=== PATIENT | female | born 2000 | race American Indian/Alaskan Native ===

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

== ENCOUNTER 2021-04-28 22:46 | Inpatient (IN) | payer MEDICAID ==
[2021-04-28] MEDS ORDERED: Oxytocin/Normal Saline 30 UNIT/500 ML BAG IV SCH (23:45)
--- NOTE | 2021-04-28 23:49 | PCM.LDHP ---
L&D History of Present Illness - General Date of Service: 04/28/21 Admit Problem/Dx: Admission Diagnosis/Problem Admission Diagnosis/Problem Source of Information: Patient History Limitations: Reports: No Limitations - History of Present Illness Introduction:: 20-year-old at 39w1d presents to L&D with increased contractions. Patient states that she started feeling uncomfortable yesterday. Over the past 5-6 hours, she has noted that her contractions have become more frequent and more intense. Reports feeling them every 1-2 minutes. She is breathing through them. No vaginal bleeding or leaking of fluid. Baby has been active. No headaches or vision changes. - Related Data Allergies/Adverse Reactions: Allergies Allergy/AdvReac Type Severity Reaction Status Date / Time No Known Allergies Allergy Verified 04/17/21 20:40 Home Medications: Home Meds Metoclopramide HCl 10 mg PO . EVERY 8 HOURS N 09/16/20 [History] #103/Iron Fumarate/Fa [ ] 1 tab PO DAILY 10/11/20 [History] Past Medical History - Past Health History Medical/Surgical History: Denies Medical/Surgical History HEENT History: Reports: Impaired Vision Other HEENT History: wears glasses Cardiovascular History: Reports: None Respiratory History: Reports: Pneumonia, Recurrent Other Respiratory History: in 2nd grade was in [place] with chest tubes from pneumonia. 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 Musculoskeletal History: Reports: None Neurological History: Reports: None Psychiatric History: Reports: Anxiety, Depression, Panic Attack Endocrine/Metabolic History: Reports: None Hematologic History: Reports: Anemia, Other (See Below) Other Hematologic History: patient reports that she has not been taking her iron at this time Immunologic History: Reports: None Oncologic (Cancer) History: Reports: None Dermatologic History: Reports: None - Infectious Disease History Infectious Disease History: Reports: None - Past Surgical History Head Surgeries/Procedures: Reports: None HEENT Surgical History: Reports: None, Other (See Below) Other HEENT Surgeries/Procedures: dental surgery Respiratory Surgical History: Reports: Thoracentesis Social & Family History - Family History Family Medical History: No Pertinent Family History - Caffeine Use Caffeine Use: Reports: Coffee, Soda H&P Review of Systems - Review of Systems: Review Of Systems: See Below General: Reports: No Symptoms HEENT: Reports: No Symptoms Pulmonary: Reports: No Symptoms Cardiovascular: Reports: No Symptoms Gastrointestinal: Reports: No Symptoms Musculoskeletal: Reports: No Symptoms Skin: Reports: No Symptoms Psychiatric: Reports: No Symptoms Neurological: Reports: No Symptoms L&D Exam - Exam Exam: See Below - OB Specific Fundal Height In cm: 39 Contraction Duration (sec): 60 Contraction Frequency (min): 2-3 Contraction Intensity: Moderate Movement: Active Heart Tones: Present Heart Tones per Min: 145 Heart Rate (FHR) Variability: Moderate (6-25 bpm) Presentation: Vertex - Mcdaniel Score Mcdaniel Score Cervix Position: Midposition Mcdaniel Score Consistency: Soft Mcdaniel Score Effacement: 51-70% Mcdaniel Score Dilation: 3-4 cm Mcdaniel Score 's Station: -2 Mcdaniel Score Total: 8 - Exam General: Alert, Oriented Lungs: Clear to Auscultation, Normal Respiratory Effort Cardiovascular: Regular Rate Back Exam: Normal Inspection Extremities: Normal Inspection, Non-Tender, Pedal Edema (Trace bilaterally) Skin: Warm, Dry, Intact Psychiatric: Alert - Problem List (1) care in third trimester SNOMED Code(s): 639474609, 44583232, 52275890, 140185020, 501753250 ICD Code: Z34.93 - ENCNTR FOR SUPRVSN OF NORMAL PREG, UNSP, THIRD TRIMESTER Status: Acute Current Visit: Yes (2) Impaired glucose in , antepartum SNOMED Code(s): 044253369, 647414602 ICD Code: O99.810 - ABNORMAL GLUCOSE COMPLICATING Status: Acute Current Visit: Yes (3) GBS (group B Streptococcus carrier), +RV culture, currently SNOMED Code(s): 6817467391626, 444921196, 7016856536875 ICD Code: O99.820 - STREPTOCOCCUS B CARRIER STATE COMPLICATING Status: Acute Current Visit: Yes (4) Anemia affecting in third trimester SNOMED Code(s): 69504863, 00011131 ICD Code: O99.013 - ANEMIA COMPLICATING , THIRD TRIMESTER Status: Acute Current Visit: Yes (5) History of miscarriage, currently SNOMED Code(s): 115315599, 741907703 ICD Code: O09.299 - SUPRVSN OF PREG W POOR REPRODCTV OR OBSTET HISTORY, UNSP TRI Status: Acute Current Visit: Yes Problem List Initiated/Reviewed/Updated: Yes Assessment/Plan Comment:: 20-year-old at 39w1d admitted to L&D for active labor at term 1. Initiate routine intrapartum orders 2. Patient plans for intrathecal 3. PCN for GBS positive status 4. Expectant management. Anticipate Dr. Yajaira Paige MD
[2021-04-28] MEDS ORDERED: Misoprostol 400 MCG (4 X 100 MCG TAB) RECTAL PRN (23:50)
[2021-04-28] MEDS ORDERED: Acetaminophen 325 MG Tab PO PRN (23:50)
[2021-04-28] MEDS ORDERED: Tranexamic Acid 1,000 MG in Sodium Chloride 0.9% 100 ML IV PRN (23:50)
[2021-04-28] MEDS ORDERED: Penicillin G Potassium 5 MILLUNITS in Sodium Chloride 0.9% 100 ML IV ONE (23:50)
[2021-04-28] MEDS ORDERED: Lidocaine 1% 30 ML SDV INJECT PRN (23:50)
[2021-04-28] MEDS ORDERED: fentaNYL 100 MCG/2 ML SDV IVPUSH PRN (23:50)
[2021-04-28] MEDS ORDERED: Ondansetron 4 MG/2 ML SDV IVPUSH PRN (23:50)
[2021-04-28] MEDS ORDERED: Butorphanol 2 MG/ML SDV IVPUSH PRN ×2 (23:50)
[2021-04-28] MEDS ORDERED: Lactated Ringers 1,000 ML IV ONE (23:50)
[2021-04-28] MEDS ORDERED: Sodium Chloride 0.9% 10 ML Syringe FLUSH PRN (23:50)
[2021-04-28] MEDS ORDERED: Carboprost Tromethamine 250 MCG/1 ML Amp IM PRN (23:50)
[2021-04-28] MEDS ORDERED: Methylergonovine 0.2 MG/1 ML Amp IM PRN (23:50)
[2021-04-28] MEDS ORDERED: Nalbuphine 10 MG/1 ML Vial IM PRN (23:55)
[2021-04-28] MEDS ORDERED: Nalbuphine 10 MG/1 ML Vial IV PRN (23:55)
[2021-04-29] MEDS ORDERED: hydrOXYzine HCl 25 MG Tab PO ONE (00:19)
[2021-04-29] MEDS ORDERED: Penicillin G Potassium 3 MILLUNITS in Sodium Chloride 0.9% 100 ML IV SCH (02:00)
[2021-04-29] MEDS: Penicillin G Potassium 3 MILLUNITS in Sodium Chloride 0.9% 100 ML IV SCH ×2 (05:06→09:45)
[2021-04-29] MEDS: Lactated Ringers 1,000 ML IV SCH ×2 (07:30→08:50)
[2021-04-29] MEDS ORDERED: Sodium Chloride 0.9% 20 ML SDV ONE (08:10)
[2021-04-29] MEDS ORDERED: fentaNYL 100 MCG/2 ML SDV ITHECAL ONE (08:10)
[2021-04-29] MEDS ORDERED: EPINEPHrine 1 MG/ML SDV ONE ×2 (08:10→08:17)
[2021-04-29] MEDS ORDERED: Sodium Bicarbonate 4.2% 2.5 MEQ/5 ML SDV ONE (08:17)
[2021-04-29] MEDS ORDERED: fentaNYL 100 MCG/2 ML SDV ONE (08:17)
--- NOTE | 2021-04-29 08:36 | PCM.SN.2 ---
- Free Text/Narrative Note: Intrathecal. Sitting position, sterile prep and drape. 1% lidocaine w bicarb for skinwheal to L2 L3 interspace. Introducer, 24 ga pencan x 1. 0.1 ml of I:1000 pf epi wash, 20 mcg pf sufenta, 30 mcg pf fentanyl, 0.4 ml pf NS and 6 mg of 0.75% pf Marcaine injected after CSF aspiration. Pt to L lateral position. Procedure time 0810 to 0855 Time Documentation
--- NOTE | 2021-04-29 12:13 | PCM.DEL ---
L & D Note - General Info Date of Service: 04/29/21 Mother's Due Date: 05/04/21 - Delivery Note Labor: Spontaneous, Augmented by ARM, Augmented by Oxytocin Delivery Outcome: Livebirth Delivery Method: Spontaneous Vaginal Delivery-Single Presentation: Vertex Nuchal Cord: None Anesthesia Type: Intrathecal, Nitrous Oxide Amniotic Fluid Description: Meconium Stained Episiotomy Type: None Laceration: 1st Degree, Perineal (Repaired with single figure-of-8 stitch for hemostatsis) Suture type: Vicryl Suture size: 3-0 Placenta: Intact, Spontaneous Cord: 3 Vessels Estimated Blood Loss: 250 Resuscitation Needed: Yes [place]: Suctioned, Bulb Syringe, Stimulated, Warmed Score 1 min: 8 Score 5 min: 9 Delivery Comments (Free Text/Narrative):: 20-year-old at 39w1d presented to L&D in early labor around 2300. Patient required pitocin for augmentation, and AROM was performed at 0900. Patient received an intrathecal for pain control. Patient progressed to complete dilation around 1130. Patient pushed with 2 contractions then began vomiting, which was very effective in bringing the head down to the perineum. After about 5 minutes, patient delivered a viable male with Apgars of 8 and 9 at 1 and 5 minutes respectively. [place] was placed on the mother's chest. Cord was clamped x2 and cut. Cord blood was collected. Placenta delivered about 5 minutes later without difficulty and was noted to be intact. Perineum was inspected. A 1st degree perineal laceration was noted. Pressure was held initially; however, this did not result in hemostasis so a single figure-of-8 stitch was placed using 3-0 vicryl suture. Hemostasis was achieved. Uterine tone was noted to be firm, and vaginal bleeding was appropriate. Patient tolerated the procedure well, and there were no immediate complications. Induction Criteria - Augmentation Estimated Pelvis: Reports: Adequate Weight Estimated:: Reports: AGA Reassuring Monitoring Strip: Yes Absence of Tachy Systole: Yes - General Info Date of Service: 04/29/21 - Patient Data Vitals - Most Recent: Last Vital Signs Temp 36.8 C 04/29/21 09:15 Pulse 100 04/29/21 09:00 Resp 12 04/29/21 09:00 BP 123/66 04/29/21 09:00 Pulse Ox 96 04/29/21 09:00 Weight - Most Recent: 89.358 kg I&O - Last 24 Hours: Intake & Output 04/28/21 04/29/21 04/29/21 22:59 06:59 14:59 Intake Total 1100 Balance 1100 Lab Results Last 24 Hours: Laboratory Results - last 24 hr 04/29/21 04/29/21 04/29/21 Range/Units 00:20 00:20 00:20 WBC (5.0-10.0) 10^3/uL RBC (4.2-5.4) 10^6/uL Hgb (12.0-16.0) g/dL Hct (37.0-47.0) % MCV (80-100) fL MCH (27.0-34.0) pg MCHC (33.0-35.0) g/dL Plt Count (150-450) 10^3/uL BUN (7-18) mg/dL Creatinine (0.55-1.02) mg/dL Est Cr Clr Drug Dosing Estimated GFR (MDRD) Uric Acid (2.6-6.0) mg/dL AST (15-37) U/L ALT (14-59) U/L Lactate Dehydrogenase (81-234) U/L Urine Color Yellow (YELLOW) Urine Appearance Cloudy (CLEAR) Urine pH 8.5 (5.0-9.0) Ur Specific [place] 1.020 (1.005-1.030) Urine Protein Trace H (NEGATIVE) Urine Glucose (UA) Negative (NEGATIVE) Urine Ketones Negative (NEGATIVE) Urine Occult Blood Moderate H (NEGATIVE) Urine Nitrite Negative (NEGATIVE) Urine Bilirubin Negative (NEGATIVE) Urine Urobilinogen 0.2 (0.2-1.0) mg/dL Ur Leukocyte Esterase Moderate H (NEGATIVE) Ur Random Creatinine 62.52 (No establ ref range) mg/dL U Random Total Protein 25.3 H (0.0-11.9) mg/dL Protein/Creatinin Ratio 404.7 H (<150.0) mg/g SARS-CoV-2 RNA ([place]) Negative (NEGATIVE) 04/29/21 04/29/21 Range/Units 00:45 00:45 WBC 16.4 H (5.0-10.0) 10^3/uL RBC 4.47 (4.2-5.4) 10^6/uL Hgb 10.4 L (12.0-16.0) g/dL Hct 33.8 L (37.0-47.0) % MCV 75.6 L D (80-100) fL MCH 23.3 L (27.0-34.0) pg MCHC 30.8 L (33.0-35.0) g/dL Plt Count 222 (150-450) 10^3/uL BUN 4 L (7-18) mg/dL Creatinine 0.68 (0.55-1.02) mg/dL Est Cr Clr Drug Dosing TNP Estimated GFR (MDRD) > 60 Uric Acid 5.5 (2.6-6.0) mg/dL AST 14 L (15-37) U/L ALT 17 (14-59) U/L Lactate Dehydrogenase 234 (81-234) U/L Urine Color (YELLOW) Urine Appearance (CLEAR) Urine pH (5.0-9.0) Ur Specific [place] (1.005-1.030) Urine Protein (NEGATIVE) Urine Glucose (UA) (NEGATIVE) Urine Ketones (NEGATIVE) Urine Occult Blood (NEGATIVE) Urine Nitrite (NEGATIVE) Urine Bilirubin (NEGATIVE) Urine Urobilinogen (0.2-1.0) mg/dL Ur Leukocyte Esterase (NEGATIVE) Ur Random Creatinine (No establ ref range) mg/dL U Random Total Protein (0.0-11.9) mg/dL Protein/Creatinin Ratio (<150.0) mg/g SARS-CoV-2 RNA ([place]) (NEGATIVE) Med Orders - Current: Current Medications Acetaminophen (Acetaminophen 325 Mg Tab) 650 mg PO Q4H PRN PRN Reason: Pain (Mild 1-3) and fever Butorphanol Tartrate (Butorphanol 2 Mg/Ml Sdv) 0.5 mg IVPUSH Q3H PRN PRN Reason: Pain Butorphanol Tartrate (Butorphanol 2 Mg/Ml Sdv) 1 mg IVPUSH Q3H PRN PRN Reason: Pain Carboprost Tromethamine (Carboprost Tromethamine 250 Mcg/1 Ml Amp) 250 mcg IM ASDIRECTED PRN PRN Reason: HEMORRHAGE Fentanyl (Fentanyl 100 Mcg/2 Ml Sdv) 100 mcg IVPUSH Q1H PRN PRN Reason: Pain (moderate 4-6) Tranexamic Acid 1,000 mg/ (Sodium Chloride) 110 mls @ 660 mls/hr IV ONETIME PRN PRN Reason: Bleeding Oxytocin/Sodium Chloride (Pitocin In Ns 30 Unit/500 Ml) 30 unit in 500 mls @ 2 mls/hr IV TITRATE JACQUES; Protocol Lactated Ringer's (Ringers, Lactated) 1,000 mls @ 125 mls/hr IV ASDIRECTED JACQUES Last Admin: 04/29/21 08:50 Dose: 125 mls/hr Documented by: Penicillin G Potassium 3 (millunits/ Sodium Chloride) 100 mls @ 200 mls/hr IV Q4H JACQUES Last Admin: 04/29/21 09:45 Dose: 200 mls/hr Documented by: Lidocaine HCl (Lidocaine 1% 30 Ml Sdv) 30 ml INJECT ASDIRECTED PRN PRN Reason: Perineal Repair Methylergonovine Maleate (Methylergonovine 0.2 Mg/1 Ml Amp) 0.2 mg IM ASDIRECTED PRN PRN Reason: Hemorrhage Misoprostol (Misoprostol 400 Mcg (4 X 100 Mcg Tab)) 800 mcg RECTAL ASDIRECTED PRN PRN Reason: Hemorrhage Nalbuphine HCl (Nalbuphine 10 Mg/1 Ml Vial) 20 mg IM Q3H PRN PRN Reason: Pain Last Admin: 04/29/21 01:07 Dose: 20 mg Documented by: Nalbuphine HCl (Nalbuphine 10 Mg/1 Ml Vial) 10 mg IV Q3H PRN PRN Reason: Pain Ondansetron HCl (Ondansetron 4 Mg/2 Ml Sdv) 4 mg IVPUSH Q4H PRN PRN Reason: Nausea/Vomiting Last Admin: 04/29/21 06:17 Dose: 4 mg Documented by: Sodium Chloride (Sodium Chloride 0.9% 10 Ml Syringe) 10 ml FLUSH ASDIRECTED PRN PRN Reason: Keep Vein Open Discontinued Medications Epinephrine HCl (Epinephrine 1 Mg/Ml Sdv) Confirm Administered Dose 1 mg .ROUTE .STK-MED ONE Stop: 04/29/21 08:18 Fentanyl (Fentanyl 100 Mcg/2 Ml Sdv) Confirm Administered Dose 100 mcg .ROUTE .STK-MED ONE Stop: 04/29/21 08:18 Hydroxyzine HCl (Hydroxyzine Hcl 25 Mg Tab) 50 mg PO ONETIME ONE Stop: 04/29/21 00:20 Last Admin: 04/29/21 01:07 Dose: 50 mg Documented by: Penicillin G Potassium 5 (millunits/ Sodium Chloride) 100 mls @ 200 mls/hr IV ONETIME ONE Stop: 04/29/21 00:19 Last Admin: 04/29/21 01:06 Dose: 200 mls/hr Documented by: Penicillin G Potassium 3 (millunits/ Sodium Chloride) 100 mls @ 200 mls/hr IV Q4HR JACQUES Last Admin: 04/29/21 02:26 Dose: Not Given Documented by: Lactated Ringer's (Ringers, Lactated) 1,000 mls @ 999 mls/hr IV BOLUS ONE Stop: 04/29/21 00:50 Last Admin: 04/29/21 09:54 Dose: Not Given Documented by: Sodium Bicarbonate (Sodium Bicarbonate 4.2% 2.5 Meq/5 Ml Sdv) Confirm Administered Dose 2.5 meq .ROUTE .STK-MED ONE Stop: 04/29/21 08:18 Sufentanil Citrate (Sufentanil 50 Mcg/1 Ml Amp) Confirm Administered Dose 50 mcg .ROUTE .STK-MED ONE Stop: 04/29/21 08:18 - Problem List & Annotations (1) care in third trimester SNOMED Code(s): 631383396, 41949929, 82868139, 392142249, 333682941 Code(s): Z34.93 - ENCNTR FOR SUPRVSN OF NORMAL PREG, UNSP, THIRD TRIMESTER Status: Acute (2) Impaired glucose in , antepartum SNOMED Code(s): 184485877, 352652379 Code(s): O99.810 - ABNORMAL GLUCOSE COMPLICATING Status: Acute (3) GBS (group B Streptococcus carrier), +RV culture, currently SNOMED Code(s): 4061962443105, 531162369, 4659419197737 Code(s): O99.820 - STREPTOCOCCUS B CARRIER STATE COMPLICATING Status: Acute (4) Anemia affecting in third trimester SNOMED Code(s): 78814794, 50068134 Code(s): O99.013 - ANEMIA COMPLICATING , THIRD TRIMESTER Status: Acute (5) History of miscarriage, currently SNOMED Code(s): 915439327, 787452682 Code(s): O09.299 - SUPRVSN OF PREG W POOR REPRODCTV OR OBSTET HISTORY, UNSP TRI Status: Acute (6) (normal spontaneous vaginal delivery) SNOMED Code(s): 76262424, 860604199 Code(s): O80 - ENCOUNTER FOR FULL-TERM UNCOMPLICATED DELIVERY Status: Acute (7) Perineal laceration SNOMED Code(s): 833188002 Code(s): TZF8636 - Status: Acute Annotation/Comment:: 1st degree, repaired - Problem List Review Problem List Initiated/Reviewed/Updated: Yes - My Orders Last 24 Hours: My Active Orders 04/28/21 23:45 Lactated Ringers [Ringers, Lactated] 1,000 ml IV ASDIRECTED Oxytocin/Normal Saline [Pitocin in NS 30 UNIT/500 ML] 30 unit in 500 ml IV TITRATE 04/28/21 23:50 Patient Status [ADT] Routine Notify Provider Vital Signs OB [RC] ASDIRECTED Pump Management, Intrathecal [RC] ASDIRECTED Up ad Qing [RC] ASDIRECTED Vital Signs [RC] 08,20 Acetaminophen [TylenoL] 650 mg PO Q4H PRN Butorphanol [Stadol] 0.5 mg IVPUSH Q3H PRN Butorphanol [Stadol] 1 mg IVPUSH Q3H PRN Carboprost Tromethamine [Hemabate DS] 250 mcg IM ASDIRECTED PRN Lidocaine 1% [Xylocaine-MPF 1%] 30 ml INJECT ASDIRECTED PRN Methylergonovine [Methergine] 0.2 mg IM ASDIRECTED PRN Ondansetron [Zofran] 4 mg IVPUSH Q4H PRN Sodium Chloride 0.9% [Saline Flush] 10 ml FLUSH ASDIRECTED PRN Tranexamic Acid [Cyklokapron] 1,000 mg Sodium Chloride 0.9% [Normal Saline] 100 ml IV ONETIME fentaNYL [Sublimaze] 100 mcg IVPUSH Q1H PRN miSOPROStoL [Cytotec] 800 mcg RECTAL ASDIRECTED PRN Saline Lock Insert [OM.PC] Routine Resuscitation Status Routine 04/28/21 23:55 Nalbuphine [Nubain] 10 mg IV Q3H PRN Nalbuphine [Nubain] 20 mg IM Q3H PRN 04/29/21 05:00 Penicillin G Potassium [Pfizerpen] 3 millunits Sodium Chloride 0.9% [Normal Saline] 100 ml IV Q4H 04/29/21 Breakfast Regular Diet [DIET] - Assessment Assessment:: 20-year-old, now , s/p at 39w2d - Plan Plan:: 1. Initiate routine cares 2. Plans to bottle feed 3. Anticipate discharge 05/01/2021 Yajaira Paige MD
[2021-04-29] MEDS ORDERED: Benzocaine/Menthol 20%-0.5% Spray 78 GM Cannister TOP PRN (12:17)
[2021-04-29] MEDS ORDERED: Zolpidem 5 MG Tab PO PRN (12:17)
[2021-04-29] MEDS ORDERED: Oxytocin 10 Units/1 ML SDV IM PRN (12:17)
[2021-04-29] MEDS ORDERED: Simethicone 80 MG Tab.Chew PO PRN (12:17)
[2021-04-29] MEDS: Ibuprofen 800 MG Tab PO PRN (19:17)
[2021-04-29] MEDS: Docusate Sodium 100 MG Cap PO PRN (21:42)
[2021-04-30] MEDS: Ibuprofen 800 MG Tab PO PRN ×3 (05:16→21:11)
[2021-04-30] MEDS: Prenatal Multivitamin with Calcium/Folic Acid/Iron Tab PO SCH (14:10)
[2021-04-30] MEDS: Docusate Sodium 100 MG Cap PO PRN (21:11)
--- NOTE | 2021-05-01 09:12 | PCM.DCSUM1 ---
Discharge Summary - Hospital Course Free Text/Narrative:: 20-year-old PPD#2 s/p at 39w2d - Discharge Data Discharge Date: 05/01/21 Discharge Disposition: Home, Self-Care 01 Condition: Good - Referral to Home Health Primary Care Physician: Michael Paige MD - Discharge Diagnosis/Problem(s) (1) care in third trimester SNOMED Code(s): 323381890, 80272124, 90200735, 551921800, 854758275 ICD Code: Z34.93 - ENCNTR FOR SUPRVSN OF NORMAL PREG, UNSP, THIRD TRIMESTER Status: Acute (2) Impaired glucose in , antepartum SNOMED Code(s): 022514667, 720697197 ICD Code: O99.810 - ABNORMAL GLUCOSE COMPLICATING Status: Acute (3) GBS (group B Streptococcus carrier), +RV culture, currently SNOMED Code(s): 9781890674691, 522515712, 0150577756574 ICD Code: O99.820 - STREPTOCOCCUS B CARRIER STATE COMPLICATING Status: Acute (4) Anemia affecting in third trimester SNOMED Code(s): 96371896, 41165572 ICD Code: O99.013 - ANEMIA COMPLICATING , THIRD TRIMESTER Status: Acute (5) History of miscarriage, currently SNOMED Code(s): 377206635, 428348561 ICD Code: O09.299 - SUPRVSN OF PREG W POOR REPRODCTV OR OBSTET HISTORY, UNSP TRI Status: Acute (6) (normal spontaneous vaginal delivery) SNOMED Code(s): 39027689, 041707124 ICD Code: O80 - ENCOUNTER FOR FULL-TERM UNCOMPLICATED DELIVERY Status: Acute (7) Perineal laceration SNOMED Code(s): 348637179 ICD Code: NNY2241 - Status: Acute Problem Details: 1st degree, repaired - Patient Summary/Data Operative Procedure(s) Performed: None Complications: None Consults: None Labs Pending at D/C: None Recommended Follow-up Testing/Procedures: None Planned Operative Procedure(s) after DC: None Hospital Course: Please see subjective section - Patient Instructions Diet: Usual Diet as Tolerated Activity: As Tolerated, No Lifting Over 20 Pounds Driving: May Drive Today Showering/Bathing: May Shower Notify Provider of: Increased Pain, Swelling and Redness, Drainage, Nausea and/or Vomiting - Discharge Plan *PRESCRIPTION DRUG MONITORING PROGRAM REVIEWED*: Not Applicable *COPY OF PRESCRIPTION DRUG MONITORING REPORT IN PATIENT FRED: Not Applicable Home Medications: Home Meds #103/Iron Fumarate/Fa [ ] 1 tab PO DAILY 10/11/20 [History] Acetaminophen [Tylenol] 650 mg PO Q4H PRN tablet 05/01/21 [Rx] Docusate Sodium [Colace] 100 mg PO BID PRN cap 05/01/21 [Rx] Ibuprofen [Motrin] 800 mg PO Q8H PRN tablet 05/01/21 [Rx] Patient Handouts: Baby Blues, Care After Vaginal Delivery - Discharge Summary/Plan Comment DC Time >30 min.: No Total # of Minutes for Discharge Time: 15 Discharge Summary/Plan Comment: Discharge home today. Follow-up in 6-8 weeks for routine care. Reasons to return sooner or to present to the ED were reviewed. Patient voiced her understanding. Discharge teaching per nursing staff. - General Info Date of Service: 05/01/21 Subjective Update: Patient doing well today. Muscle pain improving. Ambulating and urinating with out issue. Tolerating a general diet. No fever, chills, headache, nausea or vomiting. No concerns per nursing staff. Functional Status: Reports: Pain Controlled, Tolerating Diet, Ambulating, Urinating. Denies: New Symptoms - Review of Systems General: Reports: No Symptoms HEENT: Reports: No Symptoms Pulmonary: Reports: No Symptoms Cardiovascular: Reports: No Symptoms Gastrointestinal: Reports: No Symptoms Skin: Reports: No Symptoms Neurological: Reports: No Symptoms - Patient Data Vitals - Most Recent: Last Vital Signs Temp 36.8 C 04/30/21 20:00 Pulse 84 04/30/21 20:00 Resp 16 04/30/21 20:00 BP 115/64 04/30/21 20:00 Pulse Ox 99 04/30/21 08:00 Weight - Most Recent: 89.358 kg Med Orders - Current: Current Medications Acetaminophen (Acetaminophen 325 Mg Tab) 650 mg PO Q4H PRN PRN Reason: Pain (Mild 1-3) and fever Last Admin: 05/01/21 03:45 Dose: 650 mg Documented by: Benzocaine/Menthol (Benzocaine/Menthol 20%-0.5% [place] 78 Gm Cannister) 0 gm TOP Q4H PRN PRN Reason: Perineal comfort measures Last Admin: 04/29/21 19:18 Dose: 1 applic Documented by: Carboprost Tromethamine (Carboprost Tromethamine 250 Mcg/1 Ml Amp) 250 mcg IM ASDIRECTED PRN PRN Reason: HEMORRHAGE Docusate Sodium (Docusate Sodium 100 Mg Cap) 100 mg PO BID PRN PRN Reason: Constipation Last Admin: 04/30/21 21:11 Dose: 100 mg Documented by: Tranexamic Acid 1,000 mg/ (Sodium Chloride) 110 mls @ 660 mls/hr IV ONETIME PRN PRN Reason: Bleeding Oxytocin/Sodium Chloride (Pitocin In Ns 30 Unit/500 Ml) 30 unit in 500 mls @ 2 mls/hr IV TITRATE JACQUES; Protocol Last Titration: 04/29/21 15:30 Dose: Infused Documented by: Lactated Ringer's (Ringers, Lactated) 1,000 mls @ 125 mls/hr IV ASDIRECTED JACQUES Last Admin: 04/29/21 08:50 Dose: 125 mls/hr Documented by: Ibuprofen (Ibuprofen 800 Mg Tab) 800 mg PO Q8H PRN PRN Reason: Cramping Last Admin: 04/30/21 21:11 Dose: 800 mg Documented by: Methylergonovine Maleate (Methylergonovine 0.2 Mg/1 Ml Amp) 0.2 mg IM ASDIRECTED PRN PRN Reason: Hemorrhage Misoprostol (Misoprostol 400 Mcg (4 X 100 Mcg Tab)) 800 mcg RECTAL ASDIRECTED PRN PRN Reason: Hemorrhage Ondansetron HCl (Ondansetron 4 Mg/2 Ml Sdv) 4 mg IVPUSH Q4H PRN PRN Reason: Nausea/Vomiting Last Admin: 04/29/21 06:17 Dose: 4 mg Documented by: Oxytocin (Oxytocin 10 Units/1 Ml Sdv) 10 unit IM ONETIME PRN PRN Reason: Bleeding Prenat Multivit/Home Health Outreach Coordinator/Iron/Folic Ac ( Multivitamin With Calcium/Folic Acid/Iron Tab) 1 each PO DAILY JACQUES Last Admin: 04/30/21 14:10 Dose: 1 each Documented by: Simethicone (Simethicone 80 Mg Tab.Chew) 80 mg PO Q4H PRN PRN Reason: Gas Sodium Chloride (Sodium Chloride 0.9% 10 Ml Syringe) 10 ml FLUSH ASDIRECTED PRN PRN Reason: Keep Vein Open Zolpidem Tartrate (Zolpidem 5 Mg Tab) 5 mg PO BEDTIME PRN PRN Reason: Insomnia Discontinued Medications Butorphanol Tartrate (Butorphanol 2 Mg/Ml Sdv) 0.5 mg IVPUSH Q3H PRN PRN Reason: Pain Butorphanol Tartrate (Butorphanol 2 Mg/Ml Sdv) 1 mg IVPUSH Q3H PRN PRN Reason: Pain Epinephrine HCl (Epinephrine 1 Mg/Ml Sdv) Confirm Administered Dose 1 mg .ROUTE .STK-MED ONE Stop: 04/29/21 08:18 Last Admin: 04/29/21 23:06 Dose: Not Given Documented by: Epinephrine HCl (Epinephrine 1 Mg/Ml Sdv) 0.1 mg .XX .STK-MED ONE Stop: 04/29/21 08:11 Fentanyl (Fentanyl 100 Mcg/2 Ml Sdv) 100 mcg IVPUSH Q1H PRN PRN Reason: Pain (moderate 4-6) Fentanyl (Fentanyl 100 Mcg/2 Ml Sdv) Confirm Administered Dose 100 mcg .ROUTE .STK-MED ONE Stop: 04/29/21 08:18 Last Admin: 04/29/21 23:07 Dose: Not Given Documented by: Fentanyl (Fentanyl 100 Mcg/2 Ml Sdv) 30 mcg ITHECAL .STK-MED ONE Stop: 04/29/21 08:11 Hydroxyzine HCl (Hydroxyzine Hcl 25 Mg Tab) 50 mg PO ONETIME ONE Stop: 04/29/21 00:20 Last Admin: 04/29/21 01:07 Dose: 50 mg Documented by: Penicillin G Potassium 5 (millunits/ Sodium Chloride) 100 mls @ 200 mls/hr IV ONETIME ONE Stop: 04/29/21 00:19 Last Admin: 04/29/21 01:06 Dose: 200 mls/hr Documented by: Penicillin G Potassium 3 (millunits/ Sodium Chloride) 100 mls @ 200 mls/hr IV Q4HR JACQUES Last Admin: 04/29/21 02:26 Dose: Not Given Documented by: Lactated Ringer's (Ringers, Lactated) 1,000 mls @ 999 mls/hr IV BOLUS ONE Stop: 04/29/21 00:50 Last Admin: 04/29/21 09:54 Dose: Not Given Documented by: Penicillin G Potassium 3 (millunits/ Sodium Chloride) 100 mls @ 200 mls/hr IV Q4H JACQUES Last Admin: 04/29/21 09:45 Dose: 200 mls/hr Documented by: Lidocaine HCl (Lidocaine 1% 30 Ml Sdv) 30 ml INJECT ASDIRECTED PRN PRN Reason: Perineal Repair Nalbuphine HCl (Nalbuphine 10 Mg/1 Ml Vial) 20 mg IM Q3H PRN PRN Reason: Pain Last Admin: 04/29/21 01:07 Dose: 20 mg Documented by: Nalbuphine HCl (Nalbuphine 10 Mg/1 Ml Vial) 10 mg IV Q3H PRN PRN Reason: Pain Sodium Bicarbonate (Sodium Bicarbonate 4.2% 2.5 Meq/5 Ml Sdv) Confirm Administered Dose 2.5 meq .ROUTE .STK-MED ONE Stop: 04/29/21 08:18 Last Admin: 04/29/21 23:07 Dose: Not Given Documented by: Sodium Bicarbonate (Sodium Bicarbonate 4.2% 5 Meq/10 Ml Syringe) 0.5 meq .XX .STK-MED ONE Stop: 04/29/21 08:11 Sodium Chloride (Sodium Chloride 0.9% 20 Ml Sdv) 0.4 ml .XX .STK-MED ONE Stop: 04/29/21 08:11 Sufentanil Citrate (Sufentanil 50 Mcg/1 Ml Amp) Confirm Administered Dose 50 mcg .ROUTE .STK-MED ONE Stop: 04/29/21 08:18 Last Admin: 04/29/21 23:07 Dose: Not Given Documented by: Sufentanil Citrate (Sufentanil 50 Mcg/1 Ml Amp) 20 mcg ITHECAL .STK-MED ONE Stop: 04/29/21 08:11 - Exam General: Reports: Alert, Oriented Lungs: Reports: Clear to Auscultation, Normal Respiratory Effort Cardiovascular: Reports: Regular Rate, Regular Rhythm, No Murmurs Extremities: Normal Inspection, No Pedal Edema Skin: Reports: Warm, Dry, Intact Neurological: Reports: No New Focal Deficit Psy/Mental Status: Reports: Alert
[2021-05-01] MEDS: Docusate Sodium 100 MG Cap PO PRN (10:07)
[2021-05-01] MEDS: Ibuprofen 800 MG Tab PO PRN (10:07)
[2021-05-01] MEDS: Prenatal Multivitamin with Calcium/Folic Acid/Iron Tab PO SCH (10:07)
[2021-05-01 10:55] VITALS: BP 116/66; PULSE 77
== END 2021-05-01 11:44 | disposition home or self-care (01) | DRG 807 ==
LOC: DL.OBCHECK 22:46 → DL.OB 23:50 → OBSVTOIN 04-29 11:44
PROVIDERS: ADMIT Family Medicine; ATTEND Family Medicine
PROC: 10E0XZZ Delivery of Products of Conception, External Approach (ICD-10-PCS; principal; 2021-04-29)
PROC: 10907ZC Drainage of Amniotic Fluid, Therapeutic from Products of Conception, Via Natural or Artificial Opening (ICD-10-PCS; 2021-04-29)
PROC: 0HQ9XZZ Repair Perineum Skin, External Approach (ICD-10-PCS; 2021-04-29)
PROC: 3E0R3BZ Introduction of Anesthetic Agent into Spinal Canal, Percutaneous Approach (ICD-10-PCS; 2021-04-29)
DX: O99.02 Anemia complicating childbirth (principal); Z37.0 Single live birth; D64.9 Anemia, unspecified; O99.824 Streptococcus B carrier state complicating childbirth; O99.814 Abnormal glucose complicating childbirth; Z20.822 Contact with and (suspected) exposure to COVID-19; Z87.01 Personal history of pneumonia (recurrent); Z28.82 Immunization not carried out because of caregiver refusal; Z3A.39 39 weeks gestation of pregnancy; O77.0 Labor and delivery complicated by meconium in amniotic fluid; O70.0 First degree perineal laceration during delivery
CPT/HCPCS: 01967; 36415; 59409; 81003; 82565; 82570; 83615; 84156; 84450; 84460; 84520; 84550; 85027; 86592; A9270-GY; J0171; J2300; J2405; J2540; J2590; J3010; J7120; U0002

== ENCOUNTER 2022-03-18 07:21 | Inpatient (IN) | payer MEDICAID ==
[2022-03-18] MEDS ORDERED: Lidocaine 1% 30 ML SDV INJECT PRN (09:01)
[2022-03-18] MEDS ORDERED: Ondansetron 4 MG/2 ML SDV IVPUSH PRN (09:01)
[2022-03-18] MEDS ORDERED: Carboprost Tromethamine 250 MCG/1 ML Amp IM PRN (09:01)
[2022-03-18] MEDS ORDERED: fentaNYL 100 MCG/2 ML SDV IVPUSH PRN (09:01)
[2022-03-18] MEDS ORDERED: Lactated Ringers 1,000 ML IV ONE (09:01)
[2022-03-18] MEDS ORDERED: Sodium Chloride 0.9% 10 ML Syringe FLUSH PRN (09:01)
[2022-03-18] MEDS ORDERED: Acetaminophen 325 MG Tab PO PRN (09:01)
[2022-03-18] MEDS ORDERED: Misoprostol 400 MCG (4 X 100 MCG TAB) RECTAL PRN (09:01)
[2022-03-18] MEDS ORDERED: Methylergonovine 0.2 MG/1 ML Amp IM PRN (09:01)
[2022-03-18] MEDS ORDERED: Nalbuphine 20 MG/1 ML Amp IM PRN (09:01)
[2022-03-18] MEDS ORDERED: Tranexamic Acid 1,000 MG in Sodium Chloride 0.9% 100 ML IV PRN (09:01)
[2022-03-18] MEDS ORDERED: Lactated Ringers 1,000 ML IV SCH (09:15)
[2022-03-18] MEDS ORDERED: Oxytocin/Normal Saline 30 UNIT/500 ML BAG IV SCH (09:15)
[2022-03-18] MEDS ORDERED: Simethicone 80 MG Tab.Chew PO PRN (16:45)
[2022-03-18] MEDS ORDERED: Oxytocin 10 Units/1 ML SDV IM PRN (16:45)
[2022-03-18] MEDS ORDERED: Benzocaine/Menthol 20%-0.5% Spray 78 GM Cannister TOP PRN (16:45)
[2022-03-18] MEDS: Docusate Sodium 100 MG Cap PO PRN (21:52)
[2022-03-18] MEDS: Ibuprofen 800 MG Tab PO PRN (21:52)
[2022-03-19] MEDS: Docusate Sodium 100 MG Cap PO PRN ×2 (08:30→17:19)
[2022-03-19] MEDS: Ibuprofen 800 MG Tab PO PRN ×2 (08:30→17:19)
[2022-03-19] MEDS: Prenatal Multivitamin with Calcium/Folic Acid/Iron Tab PO SCH ×2 (08:30→08:32)
[2022-03-19] MEDS: Ferrous Sulfate 325 MG Tab PO SCH (17:19)
[2022-03-20] MEDS: Acetaminophen 325 MG Tab PO PRN ×2 (00:24→08:30)
[2022-03-20] MEDS: Prenatal Multivitamin with Calcium/Folic Acid/Iron Tab PO SCH (08:29)
[2022-03-20] MEDS: Ferrous Sulfate 325 MG Tab PO SCH (08:29)
[2022-03-20] MEDS: Ibuprofen 800 MG Tab PO PRN (08:29)
[2022-03-20] MEDS: Docusate Sodium 100 MG Cap PO PRN (08:29)
[2022-03-20 09:13] VITALS: BP 121/54; PULSE 57
== END 2022-03-20 12:10 | disposition home or self-care (01) | DRG 807 ==
LOC: DL.OB 07:21 → OBSVTOIN 16:41 → DL.OB 16:41
PROVIDERS: ADMIT Family Medicine; ATTEND Family Medicine
PROC: 10E0XZZ Delivery of Products of Conception, External Approach (ICD-10-PCS; principal; 2022-03-18)
PROC: 10907ZC Drainage of Amniotic Fluid, Therapeutic from Products of Conception, Via Natural or Artificial Opening (ICD-10-PCS; 2022-03-18)
PROC: 00HU33Z Insertion of Infusion Device into Spinal Canal, Percutaneous Approach (ICD-10-PCS; 2022-03-18)
PROC: 3E0R3BZ Introduction of Anesthetic Agent into Spinal Canal, Percutaneous Approach (ICD-10-PCS; 2022-03-18)
DX: O48.0 Post-term pregnancy (principal); Z37.0 Single live birth; O99.02 Anemia complicating childbirth; D64.9 Anemia, unspecified; Z3A.40 40 weeks gestation of pregnancy; O99.814 Abnormal glucose complicating childbirth; Z20.822 Contact with and (suspected) exposure to COVID-19
CPT/HCPCS: 36415; 59409; 85025; 85027; 86592; A9270-GY; J2405; J2590; J7120; U0002

== ENCOUNTER 2024-11-26 21:34 | Emergency (ER) | payer MEDICAID, OTHER ==
[2024-11-26 22:01] LABS: APPEARANCE,URINE CLEAR (CLEAR); BILIRUBIN,URINE NEGATIVE (NEGATIVE); COLOR,URINE YELLOW (YELLOW); GLUCOSE,URINE NEGATIVE (NEGATIVE); KETONES,URINE TRACE (NEGATIVE); LEUKOCYTE ESTERASE,URINE NEGATIVE (NEGATIVE); NITRITE,URINE NEGATIVE (NEGATIVE); OCCULT BLOOD,URINE NEGATIVE (NEGATIVE); PH,URINE 6.5 (5.0-9.0); PROTEIN,URINE NEGATIVE (NEGATIVE); UROBILINOGEN,URINE 0.2 mg/dL (0.2-1.0)
[2024-11-26 22:10] VITALS: BP 126/64; PULSE 114
[2024-11-26 22:46] LABS: AMPHETAMINES,URINE NEGATIVE (NEGATIVE); BARBITURATES,URINE NEGATIVE (NEGATIVE); BENZODIAZEPINE,URINE NEGATIVE (NEGATIVE); MDMA (ECSTASY), URINE NEGATIVE (NEGATIVE); METHADONE,URINE NEGATIVE (NEGATIVE); METHAMPHETAMINES,URINE NEGATIVE (NEGATIVE); OPIATES,URINE NEGATIVE (NEGATIVE); OXYCODONE,URINE NEGATIVE (NEGATIVE); PHENCYCLIDINE,URINE NEGATIVE (NEGATIVE); TCA,URINE NEGATIVE (NEGATIVE)
[2024-11-26] MEDS: Take Home: Ondansetron 4 MG Tab.DIS, 5 Tab Pack PO ONE (22:53)
== END 2024-11-26 22:56 | disposition home or self-care (01) ==
LOC: DL.ED 21:34
DX: O99.611 Diseases of the digestive system complicating pregnancy, first trimester (principal); A08.4 Viral intestinal infection, unspecified; Z87.59 Personal history of other complications of pregnancy, childbirth and the puerperium; Z3A.12 12 weeks gestation of pregnancy; Z79.899 Other long term (current) drug therapy
CPT/HCPCS: 80305; 81003; 81025; 99284; Q0162

== ENCOUNTER 2025-07-09 10:49 | Inpatient (IN) | payer MEDICAID ==
[2025-07-09] MEDS ORDERED: Sodium Chloride 0.9% 10 ML Syringe FLUSH PRN (12:54)
[2025-07-09] MEDS ORDERED: Carboprost Tromethamine 250 MCG/1 mL Vial IM PRN (12:54)
[2025-07-09] MEDS ORDERED: Nalbuphine HCl 10 MG/ 1ML Amp IM PRN (12:54)
[2025-07-09] MEDS ORDERED: fentaNYL 100 MCG/2 ML SDV IVPUSH PRN (12:54)
[2025-07-09] MEDS ORDERED: Oxytocin/Lactated Ringers 30 UNIT/500 ML BAG IV SCH (13:00)
[2025-07-09 13:10] LABS: PLATELET COUNT,PLT 157 10^3/uL (150-450); RED BLOOD CELL COUNT 4.82 10^6/uL (4.2-5.4); WHITE BLOOD CELL COUNT,WBC 10.1 10^3/uL (5.0-10.0)
[2025-07-09 13:29] LABS: ASPARTATE AMNIOTRANSFERASE,AST 19.0 U/L (15-37); BLOOD UREA NITROGEN,BUN 3.0 mg/dL (7-18); CARBON DIOXIDE,CO2 24.0 mmol/L (21-32); CHLORIDE,CL 104.0 mmol/L (98-107); CREATININE 0.59 mg/dL (0.55-1.02); EST CRCL DRUG DOSING (CG) 138.83 mL/min; GLUCOSE RANDOM 79.0 mg/dL (70-99); LACTATE DEHYDROGENASE,LDH 236.0 U/L (81-234); POTASSIUM,K 3.4 mmol/L (3.5-5.1); SODIUM,NA 138.0 mmol/L (136-145)
[2025-07-09 13:32] LABS: BASOPHILS PERCENT AUTO 0.4 % (0.0-1.0); EOSINOPHILS PERCENT AUTO 0.5 % (1.0-3.0); LYMPHOCYTES PERCENT AUTO 18.3 % (20.5-50.1); MONOCYTES PERCENT AUTO 7.2 % (2-8); NEUTROPHILS PERCENT AUTO 73.6 % (42.2-75.2)
[2025-07-09 13:33] LABS: BAND PERCENT MAN 1 %; EOSINOPHILS PERCENT MAN 1 % (1-3); LYMPHOCYTES PERCENT MAN 20 % (20-50); MONOCYTES PERCENT MAN 5 % (2-8); SEG NEUTROPHILS PERCENT MAN 73 % (42-75)
[2025-07-09 13:35] LABS: ESTIMATED GFR 130.0 mL/min (>=60)
[2025-07-09] MEDS: Lactated Ringers 1,000 ML IV SCH (16:09)
[2025-07-09] MEDS: Oxytocin/Normal Saline 30 UNIT/500 ML BAG IV SCH (16:09)
[2025-07-09] MEDS: Ondansetron 4 MG/2 ML SDV IVPUSH PRN (19:26)
[2025-07-09] MEDS: Lactated Ringers 1,000 ML IV ONE (19:28)
[2025-07-09 20:09] LABS: CREATININE,URINE RAND 36.09 mg/dL (No establ ref range)
[2025-07-09 20:14] LABS: PROTEIN,URINE RANDOM < 6.0 mg/dL (0.0-11.9)
[2025-07-09] MEDS ORDERED: ePHEDrine 50 MG/ML SDV IVPUSH PRN (20:49)
[2025-07-09] MEDS ORDERED: Ropivacaine 200 MG in Premix Bag 1 BAG EPIDUR SCH (21:00)
[2025-07-10] MEDS ORDERED: Oxytocin 10 Units/1 ML SDV IM PRN (00:27)
[2025-07-10] MEDS: Benzocaine/Menthol 20%-0.5% Spray 78 GM Cannister TOP PRN (00:57)
[2025-07-10] MEDS ORDERED: Witch Hazel Medicated Pads 100/Jar TOP PRN (07:00)
[2025-07-10 08:09] LABS: PLATELET COUNT,PLT 128.0 10^3/uL (150-450); RED BLOOD CELL COUNT 3.73 10^6/uL (4.2-5.4); WHITE BLOOD CELL COUNT,WBC 13.8 10^3/uL (5.0-10.0)
[2025-07-10] MEDS: Prenatal Multivitamin with Calcium/Folic Acid/Iron Tab PO SCH (08:52)
[2025-07-11 06:42] LABS: BASOPHILS PERCENT AUTO 0.2 % (0.0-1.0); EOSINOPHILS PERCENT AUTO 2.0 % (1.0-3.0); LYMPHOCYTES PERCENT AUTO 18.8 % (20.5-50.1); MONOCYTES PERCENT AUTO 8.5 % (2-8); NEUTROPHILS PERCENT AUTO 70.5 % (42.2-75.2); PLATELET COUNT,PLT 119 10^3/uL (150-450); RED BLOOD CELL COUNT 3.51 10^6/uL (4.2-5.4); WHITE BLOOD CELL COUNT,WBC 11.8 10^3/uL (5.0-10.0)
[2025-07-12 06:33] LABS: PLATELET COUNT,PLT 128 10^3/uL (150-450); RED BLOOD CELL COUNT 2.98 10^6/uL (4.2-5.4); WHITE BLOOD CELL COUNT,WBC 12.0 10^3/uL (5.0-10.0)
[2025-07-12 06:46] LABS: BASOPHILS PERCENT AUTO 0.2 % (0.0-1.0); EOSINOPHILS PERCENT AUTO 3.1 % (1.0-3.0); LYMPHOCYTES PERCENT AUTO 21.1 % (20.5-50.1); MONOCYTES PERCENT AUTO 8.0 % (2-8); NEUTROPHILS PERCENT AUTO 67.6 % (42.2-75.2)
[2025-07-12 07:11] LABS: BAND PERCENT MAN 2 %; EOSINOPHILS PERCENT MAN 2 % (1-3); LYMPHOCYTES PERCENT MAN 19 % (20-50); MONOCYTES PERCENT MAN 5 % (2-8); SEG NEUTROPHILS PERCENT MAN 72 % (42-75)
[2025-07-12 09:51] VITALS: BP 115/67; PULSE 109
[2025-07-12] MEDS ORDERED: Ropivacaine 100 ML EPIDUR ONE (12:43)
[2025-07-12] MEDS ORDERED: fentaNYL 100 MCG/2 ML SDV EPIDUR ONE (12:43)
[2025-07-12] MEDS ORDERED: Lidocaine 1% with EPINEPHrine 1:100,000 20 ML MDV NERVRT ONE (12:43)
== END 2025-07-12 12:44 | disposition home or self-care (01) | DRG 806 ==
LOC: DL.OBCHECK 10:49 → DL.OB 12:53 → OBSVTOIN 07-10 00:13
PROVIDERS: ADMIT Family Medicine; ATTEND Family Medicine
PROC: 10E0XZZ Delivery of Products of Conception, External Approach (ICD-10-PCS; principal; 2025-07-10)
PROC: 3E0P7VZ Introduction of Hormone into Female Reproductive, Via Natural or Artificial Opening (ICD-10-PCS; 2025-07-10)
PROC: 3E0S3BZ Introduction of Anesthetic Agent into Epidural Space, Percutaneous Approach (ICD-10-PCS; 2025-07-10)
PROC: 00HU33Z Insertion of Infusion Device into Spinal Canal, Percutaneous Approach (ICD-10-PCS; 2025-07-10)
DX: O99.02 Anemia complicating childbirth (principal); Z3A.39 39 weeks gestation of pregnancy; Z37.0 Single live birth; D62 Acute posthemorrhagic anemia; O99.12 Other diseases of the blood and blood-forming organs and certain disorders involving the immune mechanism complicating childbirth; O99.355 Diseases of the nervous system complicating the puerperium; D69.6 Thrombocytopenia, unspecified; R55 Syncope and collapse
CPT/HCPCS: 01967; 36415; 59409; 80048; 82570; 83615; 84156; 84450; 84550; 85025; 85027; A9270-GY; J2004; J2405; J2590; J2795; J3010; J7030; J7120